=== PATIENT | male | born 1970 | race Caucasian/White ===

== ENCOUNTER 2016-10-05 10:11 | Emergency (ER) | payer OTHER ==
[~2016-10-05] VITALS: Ht 177.8 cm; Wt 112.0 kg
[~2016-10-05 10:11] MED LIST: ANTIVERT25 MG OR; ASPIRIN LOW DOS81 MG PO; LISINOP/HCTZ1 TA1 PO; LORTAB 1010 MG PO; LORTAB 7.5 OR; LOSARTAN POT25 MG PO; NAPROSYN500 MG PO; PAROXETINE10 MG PO; PAXIL20 MG OR; PAXIL20 MG PO; PAXIL40 MG PO; ULTRAM50 M1 PO; VISTARIL25 MG PO
[2016-10-05] MEDS ORDERED: B/P MED PO (10:24)
[2016-10-05] MEDS ORDERED: MEDDOSEPAK PO (12:42)
[2016-10-05] MEDS ORDERED: PERCOCET 5/321 COMBO PO (12:42)
[2016-10-05 12:50] VITALS: BP 131/74
== END 2016-10-05 12:50 | disposition home or self-care (01) | DRG 552 ==
LOC: ED 10:11
DX: S16.1XXA Strain of muscle, fascia and tendon at neck level, initial encounter (principal); S09.90XA Unspecified injury of head, initial encounter; M54.12 Radiculopathy, cervical region; W17.89XA Other fall from one level to another, initial encounter; Y92.009 Unspecified place in unspecified non-institutional (private) residence as the place of occurrence of the external cause

== ENCOUNTER 2017-04-28 20:27 | Emergency (ER) | payer SELFPAY ==
[~2017-04-28] VITALS: Ht 177.8 cm; Wt 113.4 kg
[~2017-04-28 20:27] MED LIST changes: +B/P MED PO; +MEDDOSEPAK PO; +PERCOCET 5/321 COMBO PO
[2017-04-28] MEDS ORDERED: LISINOPRIL20 MG PO (20:53)
[2017-04-28] MEDS ORDERED: FLEXERIL PO (22:27)
[2017-04-28] MEDS ORDERED: NAPROSYN500 MG PO (22:27)
[2017-04-28 22:34] VITALS: BP 173/85
== END 2017-04-28 22:40 | disposition home or self-care (01) | DRG 74 ==
LOC: ED 20:27
DX: M54.12 Radiculopathy, cervical region (principal); M79.602 Pain in left arm; Z91.81 History of falling

== ENCOUNTER 2021-07-22 07:54 | Day surgery (SDC) | payer BC ==
[~2021-07-22 07:54] MED LIST changes: +ALEVE220 M1 PO; +FLEXERIL PO; +LIPITOR20 M1 PO; +LISINOPRIL20 MG PO; +METFORMIN500 M2 PO
[2021-07-22 09:59] VITALS: BP 123/80
== END 2021-07-22 10:00 | disposition home or self-care (01) | DRG 951 ==
LOC: ENDO 07:54
PROVIDERS: ATTEND Surgery
PROC: 0DBH8ZX Excision of Cecum, Via Natural or Artificial Opening Endoscopic, Diagnostic (ICD-10-PCS; principal; 2021-07-22)
DX: Z12.11 Encounter for screening for malignant neoplasm of colon (principal); D12.0 Benign neoplasm of cecum; K64.8 Other hemorrhoids; I10 Essential (primary) hypertension; E11.9 Type 2 diabetes mellitus without complications; Z79.84 Long term (current) use of oral hypoglycemic drugs